=== PATIENT | male | born 1990 | race Caucasian/White ===

== ENCOUNTER 2021-03-23 19:18 | Emergency (ER) | payer OTHER ==
--- NOTE | 2021-03-23 19:31 | EDM.PDOC ---
ED HPI GENERAL MEDICAL PROBLEM - General Chief Complaint: Laceration Stated Complaint: R FOOT INJURY Time Seen by Provider: 03/23/21 19:45 Source of Information: Reports: Patient History Limitations: Reports: No Limitations - History of Present Illness INITIAL COMMENTS - FREE TEXT/NARRATIVE: This is a pleasant 31 year old male presenting with a foot laceration. the patient reports that he cut his right foot on a metal piece of the bottom of a pontoon prior to arrival. He notes that there was quite a lot of bleeding. He denies foreign body sensation aside from the possibility of sand being in the wound. He has been able to bear weight without difficulty. Reports last tetanus was in 2016. Right Foot Pain Score (Numeric/FACES): 5 - Related Data Allergies Allergy/AdvReac Type Severity Reaction Status Date / Time No Known Allergies Allergy Verified 03/23/21 19:55 Home Meds: Home Meds NK [No Known Home Meds] 03/23/21 [History] Past Medical History - Past Health History Medical/Surgical History: Denies Medical/Surgical History Social & Family History - Family History Family Medical History: No Pertinent Family History - Tobacco Use Tobacco Use Status *Q: Current Status Unknown - Caffeine Use Caffeine Use: Reports: Soda ED ROS GENERAL - Review of Systems Review Of Systems: Comprehensive ROS is negative, except as noted in HPI. ED EXAM, SKIN/RASH Exam: See Below Exam Limited By: No Limitations General Appearance: Alert, No Apparent Distress Neck: Full Range of Motion Respiratory/Chest: No Respiratory Distress, No Accessory Muscle Use Cardiovascular: Regular Rate, Rhythm Extremities: Other (Right foot with 2 cm laceration over the first MTP - does not invade the joint or involve bone. There is no associated bony tenderness and there is normal ROM of the right foot and toes. sensation and strength are intact. DP pulses are normal.) Neurological: Alert, Oriented, No Motor/Sensory Deficits Psychiatric: Normal Affect, Normal Mood Skin: Warm, Dry, Other (2 cm laceration to right foot as noted above) ED SKIN PROCEDURES - Laceration/Wound Repair Right Foot Distal NVT: Neuro & Vascular Intact, No Tendon Injury Anesthetic Type: Local Local Anesthesia - Lidocaine (Xylocaine): 1% Plain Local Anesthetic Volume: 5cc Skin Prep: Chlorhexidine (Hibiciens), Saline Exploration/Debridement/Repair: Wound Explored, Minimal Debridement, Foreign Material Removed (2 pieces of sand/dirt removed) Closed with: Sutures Lac/Wound length In cm: 2 Suture Size: 4-0 # of Sutures: 5 Suture Type: Nylon Course - Vital Signs Last Recorded V/S: Last Vital Signs Temp 96.4 F L 03/23/21 20:11 Pulse 71 03/23/21 20:11 Resp 16 03/23/21 20:11 BP 117/74 03/23/21 20:11 Pulse Ox 97 03/23/21 20:11 - Orders/Labs/Meds Meds: Medications Discontinued Medications Generic Name Dose Route Start Last Admin Trade Name Joelle PRN Reason Stop Dose Admin Lidocaine HCl 5 ml 03/23/21 19:59 03/23/21 20:03 Lidocaine 1% 5 Ml Sdv INJECT 03/23/21 20:00 5 ml ONETIME ONE Administration Departure - Departure Time of Disposition: 20:31 Disposition: Home, Self-Care 01 Clinical Impression: Foot laceration - Discharge Information Instructions: Laceration Care, Adult Referrals: PCP,None [Primary Care Provider] - Forms: ED Department Discharge Additional Instructions: Keep the laceration clean and dry. You can shower, but make sure to pat the wound dry. You can apply a small amount of antibiotic ointment or vaseline to the laceration and place a gauze dressing or bandaid. Watch for signs of infection, such as redness, swelling, drainage, fever, and return for evaluation if those develop. Otherwise you can follow up in 10 days for suture removal. Sepsis Event Note (ED) - Focused Exam Vital Signs: Vital Signs Temp Pulse Resp BP Pulse Ox 03/23/21 20:11 96.4 F L 71 16 117/74 97 03/23/21 19:56 96.4 F L 71 16 117/74 97 - Problem List Review Problem List Initiated/Reviewed/Updated: Yes - Assessment/Plan Assessment:: This is a 31 year old male presenting with a right foot laceration. His tetanus is up to date. He is bearing weight and has no bony tenderness so I do not feel imaging is indicated at this time as fracture is unlikely. Additionally, based on history and examination, suspicion for foreign body is low and imaging is not required to evaluate for foreign body. He is neurovascularly intact and there is no evidence of tendon injury on exam. The wound was anesthetized and extensively irrigated with normal saline. a few small pieces of sand/gravel were found and were removed. No additional foreign bodies noted on exploration. The laceration was repaired with sutures without immediate complication. a dressing was placed and wound care instructions were discussed. He will follow up in 10 days for suture removal. Instructed to monitor for signs of infection such as redness, fever, increasing pain, drainage, and to return for evaluation if any of those develop.
== END 2021-03-23 20:50 | disposition home or self-care (01) ==
LOC: JP.ED 19:18
DX: S91.111A Laceration without foreign body of right great toe without damage to nail, initial encounter (principal); W26.8XXA Contact with other sharp object(s), not elsewhere classified, initial encounter
CPT/HCPCS: 12001; 99282-25